=== PATIENT | female | born 1965 | race Caucasian/White ===

== ENCOUNTER → 2018-06-23 | Outpatient (CLI) | payer BC ==
[~2018-06-23] MED LIST: PEN-VEE K500 MG PO; VICODIN 5/500 505 MG PO
== END | disposition home or self-care (01) ==
LOC: MAMMO 06-21 17:00
DX: Z12.31 Encounter for screening mammogram for malignant neoplasm of breast (principal)

== ENCOUNTER 2019-06-12 12:39 | Inpatient (IN) | payer BC ==
[~2019-06-12] VITALS: Ht 157.5 cm; Wt 73.5 kg
[2019-06-12 12:55] VITALS: BP 124/72
--- NOTE | 2019-06-12 12:55 | NUR ---
A 54, admitted to , under the services of ROMY Roth MD with a diagnosis of TACHYCARDIA. Chief complaint is TACHYCARIDA. Patient arrived via wheel chair from [place]. Monitor applied. Initial assessment completed. Vital signs taken and recorded. ROMY ROTH MD notified of admission to the unit. Orders received. See assessment for past medical history, medications and allergies. Patient and/or family oriented to unit. [facility] visitation policy reviewed. Clothing/patient valuable form completed. MARILU STEWART
[2019-06-12] MEDS ORDERED: CETIRIZINE HYDR10 MG PO (13:12)
[2019-06-12] MEDS ORDERED: MONTELUKAST SOD10 MG PO (13:12)
[2019-06-12] MEDS ORDERED: METOPROLOL TART50 M1 PO (13:13)
[2019-06-12] MEDS ORDERED: SIMVASTATIN40 MG PO (13:14)
[2019-06-12] MEDS ORDERED: OMEPRAZOLE MAGN20 MG PO (13:14)
[2019-06-12] MEDS ORDERED: IBUPROFEN600 MG PO (13:15)
[2019-06-12] MEDS ORDERED: ZESTORETIC 10-1 EACH PO (13:15)
[2019-06-12] MEDS ORDERED: FLONASE ALLERG9.9 ML NAS (13:16)
--- NOTE | 2019-06-12 13:21 | NUR ---
VERBAL ORDERS RECEIVED FROM DR CASTRO
--- NOTE | 2019-06-12 14:36 | NUR ---
PT MED REC UPDATED PER PT AND PER MED CLAIM HISTORY.
[2019-06-12 14:47] LABS: BASO % 0.5 % (0.0-1.0); EOS # 0.1 10*3/uL (0.0-0.4); EOS % 1.3 % (1.0-4.0); HEMATOCRIT 41.9 % (37.0-47.0); HEMOGLOBIN 14.2 g/dl (12.0-16.0); LYMPH # 1.7 10*3/uL (1.3-4.4); LYMPH % 22.5 % (27.0-41.0); MEAN CELL VOLUME 95.2 fl (81.0-99.0); MEAN CORPUSCULAR HGB 32.3 pg (27.0-31.0); MEAN CORPUSCULAR HGB CONC 33.9 g/dl (33.0-37.0); MEAN PLATELET VOLUME 8.9 fl (9.6-12.3); MONO # 0.6 10*3/uL (0.1-1.0); NEUT # 5.1 10*3/uL (2.3-7.9); NEUT % 67.3 % (47.0-73.0); PLATELET COUNT AUTOMATED 263 10*3/uL (130-400); WHITE BLOOD COUNT 7.6 10*3/uL (4.8-10.8)
--- NOTE | 2019-06-12 15:00 | NUR ---
PT STATES THAT HE WANTS A INSTALLATION SPECIALIST TO READ PT STRESS TEST AND NOT DR CASTRO. WILL UPDATE PHYSICIANS ON PT WISHES.
[2019-06-12 15:10] LABS: ALBUMIN 4.1 gm/dl (3.1-4.5); ALKALINE PHOSPHATASE 66 U/L (45-117); BUN 14 mg/dl (7-24); CHLORIDE 103 mmol/L (98-107); CHOLESTEROL 171 mg/dL (<200); CREATININE 1.02 mg/dL (0.55-1.02); HDL CHOLESTEROL 57 mg/dl (40-60); LDL CHOLESTEROL 89 mg/dL (9-159); POTASSIUM 3.3 mmol/L (3.5-5.1); SGOT/AST 14 IU/L (3-35); SGPT/ALT 22 U/L (12-78); SODIUM 137 mmol/L (136-145); TOTAL PROTEIN 7.4 gm/dL (6.4-8.2); TRIGLYCERIDES 126 mg/dl (<150); VLDL CHOLESTEROL 25 mg/dL (6-40)
--- NOTE | 2019-06-12 15:35 | NUR ---
CONSULT CALLED TO DR HAN PER PHYSICIAN ORDERS. PHYSICIAN NOTIFIED AND GIVES ORDERS TO CHANGE XARELTO ORDER FROM 15 MG BID TO 20 [address] WILL NOTIFY DR CASTRO.
[2019-06-12 16:00] VITALS: BP 122/89
--- NOTE | 2019-06-12 16:45 | NUR ---
DR CASTRO NOTIFIED THAT PT WOULD LIKE A CLOTH MEASURER TO READ STRESS TEST. DR CASTRO STATES THAT CARDIOLOGY WILL READ STRESS TEST AND EXPLAINS THIS TO PATIENT. DR CASTRO ALSO STATES THAT HE WOULD LIKE STRESS TEST TO BE CARDIOLYTE EXERCISE STRESS TEST. WILL MAKE APPROPRIATE CHANGES TO ORDERS.
--- NOTE | 2019-06-12 16:50 | NUR ---
SPOKE WITH DR CASTRO REGARDING THE INABILITY TO PUT AN IV SITE IN PT. MULTIPLE TRIES BY NURSES, INEFFECTIVE. SUGGESTION MADE FOR PICC LINE OR MIDLINE. DR CASTRO GIVES OKAY TO CONSULT [facility] PRIMARY TEAM FOR INSERTION OF PICC LINE OR MIDLINE FOR STRESS TEST IN THE MORNING. CALLED PRIMARY TEAM AND SPOKE WITH DR MUELLER REGARDING THIS. DR MUELLER STATES THAT HE WILL NOTIFY DR LAWSON WHEN HE RETURNS TO THE FACILITY. WILL UPDATE PATIENT AND CONTINUE TO MONITOR.
--- NOTE | 2019-06-12 17:55 | NUR ---
DR LAWSON PLACES AN ACCUCATH WITH ULTRASOUND AT THIS TIME INTO PATIENT'S LEFT UPPER EXTREMITY. PT TOLERATED WELL. HR IS NOW IN THE 90S. PT HAS NO S/S OF DISTRESS. NO SOB NOTED ON ROOM AIR. RESPIRATIONS EASY AND UNLABORED. CALL LIGHT IN REACH.
--- NOTE | 2019-06-12 18:12 | NUR ---
PICC LINE ORDER SET ORDERS DISCONTINUED AT THIS TIME DUE TO PT NOW HAVING ACCUCATH AND NOT NEEDING PICC LINE.
[2019-06-12 19:52] LABS: BILIRUBIN NEGATIVE (NEGATIVE); BLOOD NEGATIVE (NEGATIVE); CLARITY CLEAR (CLEAR); COLOR YELLOW (YELLOW); GLUCOSE NEGATIVE (NEGATIVE); KETONE NEGATIVE (NEGATIVE); SPECIFIC GRAVITY 1.005 (1.005-1.030)
[2019-06-12 19:53] LABS: LEUKO ESTERASE NEGATIVE (NEGATIVE); NITRITE NEGATIVE (NEGATIVE); UROBILINOGEN 0.2 E.U./dl (0.2-1.0)
[2019-06-12 19:57] LABS: BACTERIA TRACE; RBC 0-2 rbc/hpf (0-2); WBC 0-2 wbc/hpf (0-5)
[2019-06-12 20:00] VITALS: BP 105/70
[2019-06-13] VITALS: BP 120/79
[2019-06-13 08:00] VITALS: BP 120/70
--- NOTE | 2019-06-13 08:14 | NUR ---
PT RESTING IN BED/ NO DISTRESS NOTED. WILL MONITOR
--- NOTE | 2019-06-13 09:30 | NUR ---
Tack Puller Machine in to talk to patient. Patient states lives at home with her and son. There are 3 steps in the home. Physician: Dr. Snyder [facility]: [facility] Home health services: none Patient's level of ADLs: INDEPENDENT Patient has working utilities: yes DME: none Follow-up physician's appointment after d/c: she prefers to make her own follow up appt after discharge Does patient want to access PORTAL?: no Discharge plan discussed with patient. She lives at home with her and son. She is independent in her ADLs and ambulation. Discussed home health care services and she denies any home needs at this time. When medically stable she will be discharged to home. She states her will provide transportation on discharge. She is hoping to be discharged today after her stress test. She states she hasn't been in the hospital since she had her children and is ready to go home. ELIANA CASTILLO
--- NOTE | 2019-06-13 10:45 | NUR ---
INFORMED CONSENT OBTAINED FOR EXERCISE CARDIOLITE STRESS TEST WITH DR. CASTRO. RESTING EKG NSR WITH A SUPINE HR OF 72 WITH BP OF 98/78 AND HR OF 94 WITH BP OF 118/80 IN STANDING POSITION. BASELINE EKG HAS ST DEPRESSION IN LEADS II,III,AVF AND V4-V6. PT COMPLETED 5:00 OF A AMRITA PROTOCOL WITH COMPLETION OF 2:00 OF STAGE II AT 2.5 MPH AND 12% GRADE. HAD A PEAK HR OF 140 WHICH IS 85% OF PREDICTED MAX WITH A PEAK BP OF 132/80. HAD FREQUENT PAC'S AND BURSTS OF ATRIAL FIB. HAD NONDIAGNOSTIC ST DEPRESSION. HAD NO CHEST PAIN. TEST TERMINATED BECAUSE OF FATIGUE AND SOB. HAS AN AVERAGE EXERCISE TOLERANCE. LAST RECOVERY HR OF 98 WITH BP OF 110/72. TO NUCLEAR MEDICINE IN STABLE CONDITION FOR SCANNING.
[2019-06-13 12:00] VITALS: BP 113/73
[2019-06-13] MEDS ORDERED: METOPROLOL TART50 M1 PO (12:48)
[2019-06-13] MEDS ORDERED: LISINOPRIL5 MG PO (12:48)
[2019-06-13] MEDS ORDERED: XARE20MG PO (13:03)
--- NOTE | 2019-06-13 14:30 | NUR ---
Discharge instructions reviewed with patient/family. Patient receptive and verbalizes understanding. Follow-up care arranged. Written instructions given to patient/family. RIDGE GOFF
== END 2019-06-13 17:01 | disposition home or self-care (01) | DRG 310 ==
LOC: 4E 12:39
PROVIDERS: ADMIT Internal Medicine
PROC: 4A02XM4 Measurement of Cardiac Total Activity, External Approach (ICD-10-PCS; principal; 2019-06-13)
DX: I48.0 Paroxysmal atrial fibrillation (principal); M13.0 Polyarthritis, unspecified; K21.9 Gastro-esophageal reflux disease without esophagitis; E78.5 Hyperlipidemia, unspecified; I10 Essential (primary) hypertension; D75.89 Other specified diseases of blood and blood-forming organs; E87.6 Hypokalemia; Z82.49 Family history of ischemic heart disease and other diseases of the circulatory system; Z87.891 Personal history of nicotine dependence

== ENCOUNTER → 2019-12-28 | Outpatient (CLI) | payer BC ==
[~2019-12-28] MED LIST changes: +CETIRIZINE HYDR10 MG PO; +FLONASE ALLERG9.9 ML NAS; +IBUPROFEN600 MG PO; +LISINOPRIL5 MG PO; +METOPROLOL TART50 M1 PO; +MONTELUKAST SOD10 MG PO; +OMEPRAZOLE MAGN20 MG PO; +SIMVASTATIN40 MG PO; +XARE20MG PO; +ZESTORETIC 10-1 EACH PO
== END | disposition home or self-care (01) ==
LOC: MAMMO 01:10
PROVIDERS: ATTEND Family Medicine
DX: Z12.31 Encounter for screening mammogram for malignant neoplasm of breast (principal)

== ENCOUNTER → 2021-06-16 | Outpatient (CLI) | payer BC | END | disposition home or self-care (01) | LOC: MAMMO 11:00 | PROVIDERS: ATTEND Internal Medicine Nephrology | DX: Z12.31 Encounter for screening mammogram for malignant neoplasm of breast (principal) ==

== ENCOUNTER → 2021-06-27 | Outpatient (CLI) | payer BC | END | disposition home or self-care (01) | LOC: CARD 06-23 11:00 | PROVIDERS: ATTEND Internal Medicine Nephrology | DX: R00.0 Tachycardia, unspecified (principal) ==

== ENCOUNTER → 2021-08-12 | Outpatient (CLI) | payer BC ==
[~2021-08-12] MED LIST changes: +LISINOPRIL10 M1 PO; +XARELTO20 M1 PO
== END | disposition home or self-care (01) ==
LOC: CARD 00:08
PROVIDERS: ATTEND Internal Medicine
DX: I48.0 Paroxysmal atrial fibrillation (principal); R94.31 Abnormal electrocardiogram [ECG] [EKG]

== ENCOUNTER → 2022-08-12 | Outpatient (CLI) | payer BC | END | disposition home or self-care (01) | LOC: MAMMO 09:30 | PROVIDERS: ATTEND Internal Medicine Nephrology | DX: Z12.31 Encounter for screening mammogram for malignant neoplasm of breast (principal) ==

== ENCOUNTER 2023-02-24 19:02 | Emergency (ER) | payer BC ==
[~2023-02-24] VITALS: Ht 154.9 cm; Wt 70.8 kg
[2023-02-24 19:16] VITALS: BP 131/75
[2023-02-24 19:34] LABS: BILIRUBIN Negative (Negative); BLOOD 2+ (Negative); CLARITY Clear (Clear); COLOR Yellow (Yellow); GLUCOSE Negative (Negative); KETONE Negative (Negative); LEUKO ESTERASE 3+ (Negative); NITRITE Negative (Negative); PH 6.5 (4.5-8.0); SPECIFIC GRAVITY <= 1.005 (1.001-1.030); UROBILINOGEN 0.2 E.U./dl (0.0-1.0)
[2023-02-24 20:07] LABS: BACTERIA 3+; RBC 16-20 rbc/hpf (0-2); WBC 31-40 wbc/hpf (0-5)
[2023-02-24] MEDS ORDERED: CIPRO500 MG PO (20:20)
== END 2023-02-24 20:30 | disposition home or self-care (01) ==
LOC: ED 19:02
PROVIDERS: Internal Medicine
DX: N39.0 Urinary tract infection, site not specified (principal); R31.9 Hematuria, unspecified; K21.9 Gastro-esophageal reflux disease without esophagitis; I10 Essential (primary) hypertension; E78.00 Pure hypercholesterolemia, unspecified; I48.91 Unspecified atrial fibrillation; Z98.890 Other specified postprocedural states

== ENCOUNTER → 2023-12-16 | Outpatient (CLI) | payer BC ==
[~2023-12-16] MED LIST changes: +CIPRO500 MG PO
== END | disposition home or self-care (01) ==
LOC: MAMMO 12-08 08:30
PROVIDERS: ATTEND Internal Medicine Nephrology
DX: Z12.31 Encounter for screening mammogram for malignant neoplasm of breast (principal)

== ENCOUNTER → 2025-01-22 | Outpatient (CLI) | payer BC | END | disposition home or self-care (01) | LOC: MAMMO 08:38 | PROVIDERS: ATTEND Internal Medicine Nephrology | DX: Z12.31 Encounter for screening mammogram for malignant neoplasm of breast (principal) ==